=== PATIENT | male | born 1970 | race Caucasian/White ===

== ENCOUNTER 2017-05-23 00:14 | Observation (INO) | payer SELFPAY ==
[~2017-05-23] VITALS: Ht 162.6 cm; Wt 61.5 kg
[~2017-05-23 00:14] MED LIST: DOXY100T PO; NAPR550 PO; PRED20 PO
[2017-05-23 00:28] VITALS: BP 169/93; PULSE 88; RESP 16; TEMP 97.4; O2SAT 97
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
--- NOTE | 2017-05-23 03:13 | RADRPT ---
EXAM DATE/TIME: 05/23/2017 02:55 [facility] COMPARISON: No previous studies available for comparison. INDICATIONS : Left lateral ankle pain. MEDICAL HISTORY : None. SURGICAL HISTORY : None. ENCOUNTER: Initial ACUITY: 1 day PAIN SCORE: 7/10 LOCATION: Left ankle FINDINGS: Three view exam was performed of the left ankle. Soft tissue swelling. Ankle mortise intact. There i s prominent lucency of the posterior calcaneus without significant loss of height. No radiopaque for eign bodies are seen. Bony mineralization is normal. CONCLUSION: 1. Extensive lucency of the posterior calcaneus concerning for destructive changes and possible osteo myelitis. 2. Soft tissue swelling. Ish Crockett MD on May 23, 2017 at 3:10 Board Certified Radiologist. This report was verified electronically.
--- NOTE | 2017-05-23 03:15 | RADRPT ---
EXAM DATE/TIME: 05/23/2017 02:57 [facility] COMPARISON: No previous studies available for comparison. INDICATIONS : Left lateral foot and heel pain. MEDICAL HISTORY : None. SURGICAL HISTORY : None. ENCOUNTER: Initial ACUITY: 1 day PAIN SCORE: 7/10 LOCATION: Left foot FINDINGS: Three view examination of the left foot demonstrates soft tissue swelling. There is prominent lucency in destructive changes posterior calcaneus concerning for osteomyelitis. The calcaneus is intact. Bony mineralization is normal. CONCLUSION: Lucency in destructive changes posterior calcaneus concerning for osteomyelitis. Ish Crockett MD on May 23, 2017 at 3:13 Board Certified Radiologist. This report was verified electronically.
[2017-05-23] MEDS ORDERED: ONDANSETRON HCL 4 MG/2 ML VIAL IV PUSH ONE (03:45)
[2017-05-23] MEDS ORDERED: MORPHINE SULFATE 4 MG/ML INJ IV PUSH ONE (03:45)
[2017-05-23 04:07] LABS: BASOPHIL # 0.1 TH/MM3 (0-0.2); BASOPHIL % 1.1 % (0.0-2.0); EOSINOPHIL # 0.3 TH/MM3 (0-0.4); EOSINOPHIL % 3.9 % (0.0-4.0); HEMATOCRIT 43.5 % (39.0-51.0); HEMOGLOBIN 15.2 GM/DL (13.0-17.0); LYMPH % 13.5 % (9.0-44.0); LYMPHOCYTE # 1.1 TH/MM3 (1.0-4.8); MEAN CELL VOLUME 98.7 FL (80.0-100.0); MEAN CORPUSCULAR HEMOGLOBIN 34.5 PG (27.0-34.0); MEAN CORPUSCULAR HGB CONC 34.9 % (32.0-36.0); MEAN PLATELET VOLUME 9.3 FL (7.0-11.0); MONO % 10.6 % (0.0-8.0); MONOCYTE # 0.9 TH/MM3 (0-0.9); NEUT % 70.9 % (16.0-70.0); PLATELET COUNT 224 TH/MM3 (150-450); RED BLOOD COUNT 4.41 MIL/MM3 (4.50-5.90); RED CELL DISTRIBUTION WIDTH 13.4 % (11.6-17.2); WHITE BLOOD COUNT 8.4 TH/MM3 (4.0-11.0)
[2017-05-23] MEDS ORDERED: BISACODYL 10 MG SUPP RECTAL PRN (04:15)
[2017-05-23] MEDS ORDERED: SENNOSIDES 8.6 MG TAB PO PRN (04:15)
[2017-05-23] MEDS ORDERED: NALOXONE HCL 0.4 MG/ML AMP IV PUSH PRN (04:15)
[2017-05-23] MEDS ORDERED: SODIUM CHLORIDE 0.9% FLUSH 10 ML FLUSH IV FLUSH PRN (04:15)
[2017-05-23] MEDS ORDERED: ACETAMINOPHEN 325 MG TAB PO PRN (04:15)
[2017-05-23] MEDS ORDERED: cloNIDine HCL 0.1 MG TAB PO PRN (04:15)
[2017-05-23] MEDS ORDERED: ONDANSETRON HCL 4 MG/2 ML VIAL IVP PRN (04:15)
[2017-05-23] MEDS ORDERED: LACTULOSE SYRUP 20 GM/30 ML CUP PO PRN (04:15)
[2017-05-23] MEDS ORDERED: LORazepam 2 MG TAB PO PRN (04:15)
[2017-05-23] MEDS ORDERED: FLUMAZENIL 0.5 MG/5 ML VIAL IV PUSH PRN (04:15)
[2017-05-23] MEDS ORDERED: LORazepam 1 MG TAB PO PRN (04:15)
[2017-05-23] MEDS ORDERED: LORazepam 2 MG/ML VIAL IV PUSH PRN ×4 (04:15)
[2017-05-23] MEDS ORDERED: MAGNESIUM HYDROXIDE SUSP 30 ML CUP PO PRN (04:15)
[2017-05-23 04:19] LABS: BICARBONATE 29.4 MEQ/L (21.0-32.0); CALCIUM 8.7 MG/DL (8.5-10.1); CREATININE 0.79 MG/DL (0.60-1.30)
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
[2017-05-23 04:28] VITALS: BP 166/99; PULSE 89; RESP 16; TEMP 98.4; O2SAT 97
[2017-05-23] MEDS: SODIUM CHLOR 0.9% 1000 ML INJ 1,000 ML IV SCH ×2 (04:28→17:31)
--- NOTE | 2017-05-23 04:33 | RADRPT ---
EXAM DATE/TIME: 05/23/2017 04:17 [facility] COMPARISON: FOOT LEFT COMPLETE ([id number]), May 23, 2017, 2:57. INDICATIONS : Abnormal x-ray. RADIATION DOSE: 3.92 CTDIvol (mGy) MEDICAL HISTORY : None SURGICAL HISTORY : Abdominal aortic aneurysm repair. ENCOUNTER: Initial ACUITY: 1 day PAIN SCALE: 6/10 LOCATION: Left foot TECHNIQUE: Volumetric scanning of the foot was performed. Using automated exposure control and adjustment of th e mA and/or kV according to patient size, radiation dose was kept as low as reasonably achievable to obtain optimal diagnostic quality images. DICOM format image data is available electronically for re view and comparison. FINDINGS: BONES: There is fracture of the posterior calcaneus. No significant loss of height. JOINTS: No evidence of joint narrowing or effusion. SOFT TISSUES: Soft tissue swelling posteriorly. Muscles, tendons, and neurovascular structures are grossly unremark able. No evidence of mass, organized fluid collection, or foreign body. CONCLUSION: Fracture of the posterior calcaneus without significant loss of height. Ish Crockett MD on May 23, 2017 at 4:30 Board Certified Radiologist. This report was verified electronically.
[2017-05-23] MEDS: MORPHINE SULFATE 4 MG/ML INJ IV PUSH PRN ×3 (06:09→13:01)
[2017-05-23 07:47] VITALS: BP 179/106; PULSE 82; RESP 16; O2SAT 97
[2017-05-23] MEDS: FOLIC ACID 1 MG TAB PO SCH (09:48)
[2017-05-23] MEDS: THIAMINE HCL 100 MG TAB PO SCH (09:48)
[2017-05-23] MEDS: DOCUSATE SODIUM 50 MG/SENNA 8.6 MG TAB PO SCH ×2 (09:48→20:56)
[2017-05-23] MEDS: MULTIVITAMINS/MINERALS THERAPEUTIC TAB PO SCH (09:48)
[2017-05-23] MEDS: SODIUM CHLORIDE 0.9% FLUSH 10 ML FLUSH IV FLUSH SCH ×2 (09:49→20:56)
[2017-05-23] MEDS ORDERED: NEOSTIGMINE 5 MG/5 ML SYRINGE IV PUSH ONE (12:00)
[2017-05-23] MEDS ORDERED: ePHEDrine/NS 25 MG/5 ML SYRINGE IV ONE (12:00)
[2017-05-23] MEDS ORDERED: DEXAMETHASONE SOD PHOS 4 MG/ML VIAL IV ONE (12:00)
[2017-05-23] MEDS ORDERED: GLYCOPYRROLATE 1 MG/5 ML SYRINGE IV PUSH ONE (12:00)
[2017-05-23] MEDS ORDERED: ceFAZolin INJ 1,000 MG VIAL IV ONE ×2 (12:00→17:25)
[2017-05-23] MEDS ORDERED: ROCURONIUM INJ 50 MG/5 ML SYRINGE IV PUSH ONE (12:00)
[2017-05-23] MEDS ORDERED: LACTATED RINGER'S 1000 ML INJ 1,000 ML IV ONE (12:00)
[2017-05-23] MEDS ORDERED: PROPOFOL 200 MG/20 ML AMP IV ONE (12:00)
[2017-05-23] MEDS ORDERED: ONDANSETRON HCL 4 MG/2 ML VIAL IV ONE (12:00)
[2017-05-23] MEDS ORDERED: LIDOCAINE HCL 1% PF 5 ML SYRINGE OTHER ONE (12:00)
[2017-05-23 14:07] VITALS: BP 177/98; PULSE 64; RESP 18; TEMP 98.5; O2SAT 96
--- NOTE | 2017-05-23 14:44 | HHI.PR ---
Addendum to Inpatient Note Addendum Reason: Additional Documentation Additional Information Pt still having pain. no nausea or vomiting. Hasn't yet spoke w podiatry left lower ext w dressing in place. able to wiggle toe. sensation intact 1. Left calcaneal fracture Foot x-ray shows destructive changes in the posterior calcaneus Podiatry consulted, awaiting recs CT foot calcaneus fx w no height loss NPO I have adjusted pt's pain regimen. Julieth Duff MD May 23, 2017 14:44
[2017-05-23] MEDS ORDERED: oxyCODONE/ACETAMINOPHEN 10 MG/325 MG TAB PO PRN (14:45)
[2017-05-23] MEDS ORDERED: GENTAMICIN SULFATE 80 MG/2 ML VIAL ONE (15:04)
[2017-05-23] MEDS ORDERED: LACTATED RINGER'S 1000 ML IV PRN (16:00)
[2017-05-23] MEDS ORDERED: CHLORHEXIDINE GLUCONATE 2 % 1 PACK (2 CLOTHS) TOPICAL PRN (16:00)
[2017-05-23] MEDS ORDERED: INSULIN HUMAN REGULAR 1,000 UNITS/10 ML VIAL SQ PRN (16:00)
[2017-05-23] MEDS ORDERED: SODIUM CHLORID 0.9% 500 ML IV PRN (16:00)
[2017-05-23] MEDS ORDERED: METOPROLOL TARTRATE 25 MG TAB PO PRN (16:00)
[2017-05-23] MEDS ORDERED: POVIDONE IODINE 5% (ANTISEPSIS KIT) 4 APPLICATIONS EACH NARE PRN (16:00)
[2017-05-23] MEDS ORDERED: MORPHINE SULFATE 2 MG/ML INJ IV PUSH PRN (16:15)
[2017-05-23] MEDS ORDERED: ACETAMINOPHEN 1000 MG/100 ML 100 ML IV ONE (17:25)
[2017-05-23] MEDS ORDERED: DO NOT ADM ANY ANTICOAGULANT DRUGS PRN (18:08)
[2017-05-23] MEDS ORDERED: MIDAZOLAM HCL 2 MG/2 ML VIAL ONE (18:18)
[2017-05-23] MEDS ORDERED: *ENALAPRILAT 1.25 MG/ML VIAL PERIprocedural Use ONLY ONE (18:32)
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
[2017-05-23] MEDS ORDERED: *morphine SULFATE 8 MG/ML PERIprocedure ONLY ONE ×3 (18:37→19:06)
--- NOTE | 2017-05-23 18:47 | RADRPT ---
EXAM DATE/TIME: 05/23/2017 17:40 [facility] COMPARISON: FOOT LEFT COMPLETE ([id number]), May 23, 2017, 2:57. HEEL LEFT ([id number]), May 23, 2017, 18:23. CONSUELO T LEFT COMPLETE ([id number]), May 23, 2017, 18:29. INDICATIONS : ORIF left heel. MEDICAL HISTORY : None. SURGICAL HISTORY : None. ENCOUNTER: Initial ACUITY: 1 day PAIN SCORE: Non-responsive. LOCATION: Left heel. FINDINGS: 2 screws are seen through the calcaneus successful reducing the previously seen fracture at the poste rior inferior calcaneus. The subtalar joint is normally aligned. The hardware is well-placed. CONCLUSION: Successful ORIF of a calcaneal fracture. Aries Bell MD on May 23, 2017 at 18:44 Board Certified Radiologist. This report was verified electronically.
--- NOTE | 2017-05-23 18:49 | RADRPT ---
EXAM DATE/TIME: 05/23/2017 18:23 [facility] COMPARISON: HEEL LEFT ([id number]), May 23, 2017, 17:40. INDICATIONS : Post op left heel. MEDICAL HISTORY : None. SURGICAL HISTORY : None. ENCOUNTER: Initial ACUITY: 1 day PAIN SCORE: 0/10 LOCATION: Left calcaneous. FINDINGS: 2 screws are seen through the calcaneus successful reducing the previous seen posterior calcaneal fra cture. The hardware is well-placed. The patient is in a partial cast. CONCLUSION: Successful ORIF. Aries Bell MD on May 23, 2017 at 18:46 Board Certified Radiologist. This report was verified electronically.
--- NOTE | 2017-05-23 18:51 | RADRPT ---
EXAM DATE/TIME: 05/23/2017 18:29 [facility] COMPARISON: CT FOOT LEFT W/O CONTRAST, May 23, 2017, 4:17. FOOT LEFT COMPLETE ([id number]), May 23, 2017, 2:57. INDICATIONS : Post op left heel. MEDICAL HISTORY : None. SURGICAL HISTORY : None. ENCOUNTER: Initial ACUITY: 1 day PAIN SCORE: 0/10 LOCATION: Left foot. FINDINGS: 2 screws are seen through the calcaneus. They successfully reduce the previously seen calcaneal fract ure. The remaining bones and joints appear intact. The joints are normally aligned. The patient is in a partial cast. CONCLUSION: Status post calcaneal ORIF. Aries Bell MD on May 23, 2017 at 18:47 Board Certified Radiologist. This report was verified electronically.
[2017-05-23 20:07] VITALS: BP 141/91; PULSE 72; RESP 18; TEMP 97.7; O2SAT 98
[2017-05-23 23:05] VITALS: BP 141/74; PULSE 76; RESP 18; TEMP 97.9; O2SAT 96
[2017-05-24 04:15] VITALS: BP 140/71; PULSE 83; RESP 17; TEMP 98.2; O2SAT 95
[2017-05-24] MEDS: oxyCODONE/ACETAMINOPHEN 7.5 MG/325 MG TAB PO PRN ×2 (06:00→11:14)
[2017-05-24 07:01] LABS: AUTOMATED NEUTROPHIL # 8.7 TH/MM3 (1.8-7.7); BASOPHIL % 0.3 % (0.0-2.0); HEMATOCRIT 40.3 % (39.0-51.0); LYMPH % 7.2 % (9.0-44.0); LYMPHOCYTE # 0.7 TH/MM3 (1.0-4.8); MEAN CELL VOLUME 99.2 FL (80.0-100.0); MEAN CORPUSCULAR HEMOGLOBIN 34.4 PG (27.0-34.0); MEAN CORPUSCULAR HGB CONC 34.7 % (32.0-36.0); MONO % 7.8 % (0.0-8.0); MONOCYTE # 0.8 TH/MM3 (0-0.9); NEUT % 84.7 % (16.0-70.0); PLATELET COUNT 206 TH/MM3 (150-450); RED BLOOD COUNT 4.06 MIL/MM3 (4.50-5.90); RED CELL DISTRIBUTION WIDTH 13.7 % (11.6-17.2); WHITE BLOOD COUNT 10.2 TH/MM3 (4.0-11.0)
[2017-05-24 07:38] LABS: BICARBONATE 27.4 MEQ/L (21.0-32.0); CALCIUM 8.3 MG/DL (8.5-10.1); CREATININE 0.83 MG/DL (0.60-1.30)
[2017-05-24 08:00] VITALS: BP 122/73; PULSE 70; RESP 17; TEMP 98.2; O2SAT 98
[2017-05-24] MEDS: FOLIC ACID 1 MG TAB PO SCH (08:31)
[2017-05-24] MEDS: MULTIVITAMINS/MINERALS THERAPEUTIC TAB PO SCH (08:31)
[2017-05-24] MEDS: DOCUSATE SODIUM 50 MG/SENNA 8.6 MG TAB PO SCH (08:31)
[2017-05-24] MEDS: THIAMINE HCL 100 MG TAB PO SCH (08:32)
[2017-05-24] MEDS: SODIUM CHLORIDE 0.9% FLUSH 10 ML FLUSH IV FLUSH SCH (08:32)
[2017-05-24] MEDS: SODIUM CHLOR 0.9% 1000 ML INJ 1,000 ML IV SCH (08:33)
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
[2017-05-24] MEDS ORDERED: ENOX40P SQ (10:31)
[2017-05-24] MEDS ORDERED: TRAM50TA PO (10:31)
[2017-05-24 11:59] VITALS: BP 146/87; PULSE 72; RESP 16; TEMP 98.3; O2SAT 97
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
[2017-05-24] MEDS ORDERED: ENOXAPARIN SODIUM 40 MG/0.4 ML SYRINGE SQ SCH (18:00)
== END 2017-05-24 13:05 | disposition home or self-care (01) ==
LOC: NEPD 00:14 → NEDA 03:44 → NEPHCDU 13:58 → N06B 15:59
PROVIDERS: ADMIT Hospitalist; ATTEND Hospitalist
DX: S92.002A Unspecified fracture of left calcaneus, initial encounter for closed fracture (principal); F10.10 Alcohol abuse, uncomplicated; F17.210 Nicotine dependence, cigarettes, uncomplicated; Y04.8XXA Assault by other bodily force, initial encounter
CPT/HCPCS: 01480; 28415; 73610; 73630; 73650; 73700; 76000; 80048; 85025; 85610; 85730; 96361; 96365; 96375; 96376; 97110; 97116; 97161; 99285; C1713; E0113; G0378; G8987; G8988; J0131; J0690; J1100; J1580; J2250; J2270; J2405; J2710; J3010; J7030; J7120